=== PATIENT | female | born 1960 | race Caucasian/White ===

== ENCOUNTER → 2017-05-11 | Outpatient (CLI) | payer OTHER ==
--- NOTE | ~2017-05-11 | MY11 ---
[facility] A Service of [facility] RADIOLOGY TEXT RESULTS PATIENT: JAMILA ANDREWS LOCATION: [facility] : 56 UNIT #: [id number] AGE: [address]: Tre Garcia MD SEX: F ORDER DR: [id number] [address] [id number] O MR#: [id number] #: [id number] NAME: JAMILA ANDREWS : 1960 SEX: F STUDY DATE/TIME: 05/11/2017 11:04 UNIT: [facility] ROOM: STUDY DESCRIPTION: MY Mammogram Screening Dig Garrick Attending Physician: Tre Garcia M.D. Referring Physician: Tre Garcia M.D. Ordering Physician: Tre Garcia M.D. Primary Care Physician: Tre Garcia M.D. MEDICAL IMAGING REPORT This report is preliminary unless electronic signature is present. EXAM Digital screening mammogram 05/11/2017 HISTORY 56-year-old woman, no risk elevation. Annual screen. COMPARISON STUDIES Comparison none. Unable to locate prior mammograms from [place]. FINDINGS Digital imaging of each breast was completed utilizing screening protocol. Review includes FDA-approved CAD device. Breast parenchyma is heterogeneously dense with a small nodular parenchymal pattern noted. I see no dominant mass or suspicious mass characteristics. There are no suspicious microcalcifications and no architectural deformity. IMPRESSION Benign mammogram. Annual screening recommended. BIRADS II Patients over the age of 40 are entered into a reminder system with target due date for the next mammogram. A result letter will also be sent to the patient. BIRADS: 2 - Benign finding Dictated by... Won Gore M.D. THIS IS AN ELECTRONICALLY VERIFIED REPORT Won Gore M.D. at 05/19/2017 8:10 AM Antonia [facility] A Service [facility] RADIOLOGY TEXT RESULTS PATIENT: JAMILA ANDREWS LOCATION: [facility] : 56 UNIT #: [id number] AGE: [address]: Tre Garcia MD SEX: F ORDER DR: TD: 05/18/2017 17:25 JOB #: [id number] MEDICAL IMAGING REPORT Page 1 of 1
== END | disposition home or self-care (01) ==
LOC: SMAM 04-24 11:00
DX: Z12.31 Encounter for screening mammogram for malignant neoplasm of breast (principal)
CPT/HCPCS: G0202